=== PATIENT | female | born 1960 | race Caucasian/White ===

== ENCOUNTER → 2017-04-30 | Outpatient (CLI) | payer OTHER ==
[~2017-04-30] MED LIST: ADVAIR 250/501 DISK IH; ADVIL200 M3 GT; ASPIRIN EC325 MG; Aspirin Chewable PO; CYANOCOBAL1000 MCG/2 IM; CYMBALTA30 MG PO; Coumadin,Jantoven PO; FORTAMET1000 M1 PO; GLUCOPHAGE1000 MG PO; HYDROCHLOROTH12.5 M1 PO; IRON325 M1 PO; K-DUR20 MEQ PO; LANTUS100 UNIT/1 SQ; LASIX20 MG PO; LOMOTIL TABLET1 EACH PO; LOVENOX100 MG/1 M SC; NEURONTIN300 MG PO; PRILOSEC20 MG PO; PRINIVIL10 MG PO; PROAIR HFA8.5 GM IH; PROMETHAZINE HC25 M1; RANITIDINE HCL150 M1; RANITIDINE HCL150 M1 PO; RYBIX ODT50 MG; VENTOLIN HFA18 GM IH; VITAMIN D1000 INTUN PO; ZOFRAN4 MG PO
== END | disposition home or self-care (01) ==
LOC: CDC 09:00
DX: K80.20 Calculus of gallbladder without cholecystitis without obstruction (principal)
CPT/HCPCS: 93000

== ENCOUNTER 2017-07-28 05:22 | Day surgery (SDC) | payer OTHER ==
[~2017-07-28] VITALS: Ht 162.6 cm; Wt 102.6 kg
[~2017-07-28 05:22] MED LIST changes: +LYRICA50 MG PO; +VITAMIN D22000 UNIT PO
[2017-07-28 06:37] LABS: POINT-OF-CARE METER ID UU14174212
[2017-07-28 06:57] VITALS: BP 122/59
[2017-07-28] MEDS ORDERED: COLACE100 MG PO (09:44)
[2017-07-28] MEDS ORDERED: PERCOCET 5/31 TABLET PO (09:44)
[2017-07-28 10:13] LABS: POINT-OF-CARE METER ID UU13113675
[2017-07-28 10:36] VITALS: BP 106/55
[2017-07-28 11:45] VITALS: BP 117/56
== END 2017-07-28 11:45 | disposition home or self-care (01) ==
LOC: SDC 05:22
PROVIDERS: Surgery
PROC: 0FT44ZZ Resection of Gallbladder, Percutaneous Endoscopic Approach (ICD-10-PCS; principal; 2017-07-28)
DX: K80.10 Calculus of gallbladder with chronic cholecystitis without obstruction (principal); I10 Essential (primary) hypertension; J45.909 Unspecified asthma, uncomplicated; E11.42 Type 2 diabetes mellitus with diabetic polyneuropathy; F41.9 Anxiety disorder, unspecified; Z79.84 Long term (current) use of oral hypoglycemic drugs; E66.01 Morbid (severe) obesity due to excess calories; Z68.41 Body mass index [BMI] 40.0-44.9, adult
CPT/HCPCS: 82948; 88304; J0131; J0690; J1170; J2250; J2405; J2710; J2765; J3010

== ENCOUNTER → 2017-12-03 | Outpatient (CLI) | payer OTHER ==
[~2017-12-03] MED LIST changes: +COLACE100 MG PO; +PERCOCET 5/31 TABLET PO
== END | disposition home or self-care (01) ==
LOC: NUC 08:06
DX: K21.9 Gastro-esophageal reflux disease without esophagitis (principal); Z90.49 Acquired absence of other specified parts of digestive tract
CPT/HCPCS: 78226; A9537